=== PATIENT | female | born 1990 | race Caucasian/White ===

== ENCOUNTER 2017-10-30 17:33 | Emergency (ER) | payer MEDICAID ==
[~2017-10-30] VITALS: Ht 167.6 cm; Wt 57.1 kg
[2017-10-30 17:48] VITALS: BP 142/72; Ht 167.6 cm; Wt 57.1 kg
== END 2017-10-30 19:08 | disposition home or self-care (01) ==
LOC: ED 17:33
DX: N64.4 Mastodynia (principal)